=== PATIENT | female | born 1965 | race African-American/Black ===

== ENCOUNTER 2018-09-09 06:00 | Day surgery (SDC) | payer OTHER ==
[2018-09-05 17:18] VITALS: BMI 27.6
[2018-09-09] MEDS ORDERED: ROPIVACAINE HCL 0.5% 30ML VIAL ONE (06:42)
[2018-09-09] MEDS ORDERED: MIDAZOLAM HCL 2 MG/2 ML SINGLE DOSE VIAL ONE ×3 (06:42→08:29)
[2018-09-09] MEDS ORDERED: BENZOIN/ALOE VERA/STORAX/TOLU 58 ML BOTTLE ONE (07:12)
[2018-09-09] MEDS ORDERED: fentaNYL CITRATE 250 MCG/5 ML VIAL ONE (08:20)
[2018-09-09] MEDS ORDERED: PROPOFOL 20 ML ONE ×3 (08:21→09:12)
[2018-09-09] MEDS ORDERED: ROCURONIUM BROMIDE 50 MG/5 ML VIAL ONE (08:21)
[2018-09-09] MEDS ORDERED: ceFAZolin SODIUM 1 GM VIAL ONE (08:45)
[2018-09-09] MEDS ORDERED: TRANEXAMIC ACID 1000 MG/10 ML VIAL ONE ×2 (09:20→09:38)
--- NOTE | 2018-09-09 10:12 | PN ---
Progress Note (short form) - Note Progress Note: 53F s/p RIGHT shoulder open Nathan procedure, & Neer Decompression POD #0. -Pain control: Percocet, Naproxen. -Incentive spirometry. -No chemical DVT PPx. -RUE sling. -No RIGHT shoulder ROM. -Daily RIGHT elbow, wrist & hand ROM. -Keep dressing clean & dry. -f/u in [facility] [place] [facility] on Wednesday09/15/2018; call for appointment ; . Elijah Robbins MD (Orthopaedic Surgery).
--- NOTE | 2018-09-09 10:15 | OP ---
Operative Note - Note: Operative Date: 09/09/18 Pre-Operative Diagnosis: Right shoulder impingement syndrome Operation: Right shoulder open: 1. Nathan procedure (distal claviculectomy). 2. Neer decompression (acromioplasty, CA ligament release) Findings: No evidence of rotator cuff derangement Post-Operative Diagnosis: Same as Pre-op Surgeon: Elijah Robbins Management Tech: Kana Robbins Anesthesiologist/CORE INSPECTOR: Nitin Brady Specimens Removed: Excision arthroplasty right AC joint Estimated Blood Loss (mls): 25 Fluid Volume Replaced (mls): 800 Operative Report Dictated: Yes
[2018-09-09] MEDS ORDERED: RANITIDINE HCL 150 MG TABLET (FP) PO PRN (10:18)
[2018-09-09] MEDS ORDERED: ONDANSETRON 4 MG/2 ML VIAL ONE ×2 (10:25→11:24)
[2018-09-09] MEDS ORDERED: oxyCODONE HCL 5 MG TABLET ONE (12:34)
[2018-09-09] MEDS ORDERED: ONDANSETRON 4 MG/2 ML VIAL IVPUSH PRN (13:26)
[2018-09-09] MEDS ORDERED: oxyCODONE HCL 5 MG TABLET PO PRN (13:26)
[2018-09-09] MEDS ORDERED: LACTATED RINGERS SOLUTION 1,000 ML IV SCH (13:30)
[2018-09-09 14:04] VITALS: BP 110/70; PULSE 65; TEMP 97.6
--- NOTE | 2018-09-10 07:18 | OP ---
Date of Operation: 09/09/2018 Surgeon: Elijah Robbins MD Die Inspector: Kana Robbins MD Pre-Operative Diagnosis: Right shoulder impingement syndrome. Post-Operative Diagnosis: Right shoulder impingement syndrome. Surgical Procedure: Right shoulder open: 1. Nathan procedure (distal clavicle excision). 2. Neer decompression (undercutting acromioplasty and coraco-acromial ligament release). Findings: No evidence of rotator cuff derangement. Anesthesia: General, Regional (interscalene block). Position: Beach chair. Incision: Oblique. Estimated Blood Loss: 25cc. Intravenous Fluid: 800cc crystalloid. Specimens: Excision arthroplasty right AC joint. Drains: None. Complications: None. Urine output: None. Bacteriology: None. Transfusions: None. Closure: #1 Vicryl. 3-0 Biosyn. Indications: The patient is a 53 year old female who was indicated for an open right shoulder distal claviculectomy (Nathan procedure), coraco-acromial ligament release & Acromioplasty (Neer Decompression) in order to ameliorate the symptoms associated with shoulder impingement syndrome. The patient was identified in the holding area by her armband. A long discussion was held with the patient regarding the risks, benefits and alternatives of the above-named procedure. Risks include but are not limited to : pain, bleeding, infection, damage to surrounding structures (including nerves , blood vessels, skin, ligaments, tendons and bone), reflex sympathetic dystrophy (RSD), wound complications, failure of repair, need for further surgery, blood clots, myocardial infarction, pulmonary embolism, anesthesia complications, compartment syndrome, limb loss, limp, loss of function, cerebrovascular event, and . Benefits as mentioned above. Alternatives include no surgery. All questions were answered. The patient understood and agreed to the procedure. Informed consent was obtained, witnessed and verified. The patients correct operative limb - the right upper extremity - was marked, and the anesthesia team administered an ipsilateral interscalene nerve block. The patient was then taken to the operating room after being seen by the anesthesia and nursing staff. Procedure: The patient was brought into the operating room, placed supine on the OR table and secured with a safety strap. Consent and the operative site was again verified with the patient and nursing and anaesthesia staff. Anaesthesia & antibiotics were then administered without complication. A time-out was done led by , the attending surgeon. The patient was positioned with all bony prominences well padded. A soft bump was placed under the inferior pole of the ipsilateral scapula and the patient was placed in a beach chair position. The operative limb was prepped in standard sterile fashion using betadine prep & scrub, wiped off with alcohol, and DuraPrep, and then free draped. A time-out was repeated, and the case began. An incision was made in the lines of Davida from the coracoid process to the mid -body of the acromion. The deltoid was identified. Subcutaneous dissection was carried with electrocautery down to the level of the distal clavicle. With the distal clavicle exposed, sharp Hohmann retractors were placed around the inferior aspects of the anterior and posterior surfaces of the distal clavicle to elevate it. The acromioclavicular (AC) joint was clearly identified and the AC ligament was incised using a 15-blade. The distal 1cm of the clavicle was marked for excision. An oscillating saw was used to perform a distal clavicular osteotomy. A beveled angular cut was made to avoid leaving a sharp inferior corner to impinge on the rotator cuff below. The excision arthroplasty of the distal clavicle was completed and excised from its capsular attachments using a 15-blade. The soft tissues of the joint were saved for later closure. Throughout the case, hemostasis was assured using either monopolar or bipolar electrocautery. Next, the deltoid was elevated using an [employer] retractor, revealing the coraco-acromial (CA) ligament below. The CA ligament was incised longitudinally using a fresh 15-blade. The CA ligament was then fully released proximally and distally using Metzenbaum scissors. With the CA ligament fully decompressed, the subacromial space became accessible. This space was extremely tight. The AC joint capsule was neatly dissected to expose the distal acromion. A blunt Hohmann retractor was placed on the undersurface of the acromion, levering the humeral head down, protecting the associated underlying structures. Next, the oscillating saw was used to osteotomize the undersurface of the acromion with a beveled cut. A straight 1/2" osteotome was used to complete the cut and to free the excised segment of bone. The osteotomized acromioplasty bone fragment was then removed using a rongeur with a 15-blade to release any soft tissue attachments. The wound was copiously irrigated throughout the case using normal saline solution. Next, with finger palpation, an entire finger was delivered into the sub- acromial space and bursal adhesions were released using manual finger debridement. The shoulder was then taken through a full range of motion were no rotator cuff derangement was seen. Again, copious irrigation was performed, hemostasis was assured and the wound was closed primarily using #1 and 2-0 vicryl sutures. The skin was closed using a 3-0 Biosyn subcuticular suture. A sterile, compressive dressing was applied. The sponge and needle counts were correct at the end of the case and I, the attending surgeon, was present and scrubbed throughout the case. The patient was then transferred to a hospital stretcher and to the recovery room in stable condition, having tolerated the procedure well. A sling was applied at the end of the case. MD JENNY Guzman/[id number] MTDD
== END 2018-09-09 14:04 | disposition home or self-care (01) ==
LOC: FASU 06:00
PROVIDERS: ATTEND Orthopaedic Surgery Adult Reconstructive Orthopaedic Surgery
PROC: 0LQ20ZZ Repair Left Shoulder Tendon, Open Approach (ICD-10-PCS; 2018-09-09)
PROC: 0PBB0ZZ Excision of Left Clavicle, Open Approach (ICD-10-PCS; principal; 2018-09-09 09:05)
DX: M75.42 Impingement syndrome of left shoulder (principal)
CPT/HCPCS: 81025; 94760